=== PATIENT | female | born 1950 | race African-American/Black ===

== ENCOUNTER 2023-04-06 12:27 | Outpatient (CLI) | payer MEDICARE, OTHER | END 2023-04-06 12:28 | disposition home or self-care (01) | LOC: MADRAD 12:27 | PROVIDERS: ATTEND Internal Medicine | DX: Z12.2 Encounter for screening for malignant neoplasm of respiratory organs (principal); F17.200 Nicotine dependence, unspecified, uncomplicated | CPT/HCPCS: 71046 ==